=== PATIENT | female | born 1985 | race African-American/Black ===

== ENCOUNTER 2017-06-06 23:27 | Emergency (ER) | payer MEDICAID, OTHER ==
[2017-06-07 00:08] LABS: Bilirubin Negative (Negative); Blood, Urine Negative (Negative); Glucose, Urine (Dipstick) Negative (Negative); Ketone, Urine Negative (Negative); Nitrite Negative (Negative); Protein, Urine (Dipstick) Negative (Neg-Trace)
[2017-06-07 00:10] LABS: Bacteria/HPF 3+ HPF (None Seen); Hyaline Casts/LPF 4-6 HYALINE CAST LPF (0-3 Hyaline); RBC/HPF 0-3 HPF (0-3)
[2017-06-07 00:10] LABS: #Basophils 0.1 thou/uL (0.0-0.2); #Eosinphils 0.1 thou/uL (0.0-0.7); #Lymphocytes 2.5 thou/uL (1.20-3.40); #Monocytes 0.5 thou/uL (0.11-0.59); #Neutrophils 3.7 thou/uL (1.40-6.50); %Basophils 1.1 % (0.0-1.0); %Eosinophils 1.2 % (0.0-10.0); %Lymphocytes 36.1 % (21.0-51.0); %Monocytes 7.7 % (0.0-10.0); Hematocrit 44.4 % (36.0-47.0); Mean Platelet Volume 8.3 fL (7.4-10.4); Red Blood Cell (RBC) Count 4.68 mill/uL (4.20-5.40); White Blood Cell (WBC) Count 6.8 thou/uL (4.8-10.8)
[2017-06-07 00:30] LABS: ALT (SGPT) 16 U/L (8-55); AST (SGOT) 19 U/L (5-34); Alkaline Phosphatase 60 U/L (40-150); Anion Gap 16 mmol/L (10-20); BUN (Urea Nitrogen) 13 mg/dL (7.0-18.7); Bilirubin, Total 0.2 mg/dL (0.2-1.2); Calc. Creatinine Clearance 0 mL/min (70-130); Calcium 9.8 mg/dL (7.8-10.44); Carbon Dioxide 23 mmol/L (22-29); Chloride 104 mmol/L (98-107); Estimated GFR-MDRD Greater than 90; Globulin 3.2 g/dL (2.4-3.5); Lipase 21 U/L (8-78); Protein, Total 7.3 g/dL (6.0-8.3)
[2017-06-07] MEDS ORDERED: Ondansetron ODT 4 MG TAB ONE (02:45)
[2017-06-07] MEDS ORDERED: Cephalexin 250 MG CAP ONE (02:45)
[2017-06-07] MEDS ORDERED: Ondansetron HCl/PF 4 MG/2 ML Vial ONE (02:45)
--- NOTE | 2017-06-07 07:59 | ULT ---
PRELIMINARY REPORT/[facility]/EMERGENCY AFTER HOURS PROCEDURE: EXAM: US Abdomen Limited, Right Upper Quadrant CLINICAL HISTORY: 32 years old, female; Pain and signs and symptoms; Nausea and vomiting; Abdominal pain; Epigastric; Patient HX: Epigastric pain x 1 wk, pain worse after eating TECHNIQUE: Real-time ultrasound of the right upper quadrant with image documentation. COMPARISON: No relevant prior studies available. FINDINGS: Liver: The liver demonstrates a normal echotexture. Hepatopetal flow is demonstrated in the main por maninder vein. Gallbladder: The gallbladder is contracted. No gallstones. Negative Bo's sign was reported by [facility] pastry supervisor. Common bile duct: The extrahepatic bile duct diameter is 2 mm. No stones. No dilation. Pancreas: The visible portion of the pancreas is unremarkable. The pancreas is partially obscured by bowel gas. Right kidney: The right kidney measures 9.4 x 4.4 x 4.0 cm. No stones. No hydronephrosis. IMPRESSION: No abnormality identified. Thank you for allowing us to participate in the care of your patient. Dictated and Authenticated by: Demetrio Christianson MD 06/07/2017 3:18 AM Central Time ([place] \T\ Jg) FINAL REPORT RIGHT UPPER QUADRANT ULTRASOUND: I agree with the preliminary report given by Dr. Demetrio Christianson of [facility]. POS: [facility]
== END 2017-06-07 03:53 | disposition home or self-care (01) ==
LOC: ERS 23:27
DX: N12 Tubulo-interstitial nephritis, not specified as acute or chronic (principal); F41.9 Anxiety disorder, unspecified; F17.210 Nicotine dependence, cigarettes, uncomplicated; J45.909 Unspecified asthma, uncomplicated
CPT/HCPCS: 36415; 76705; 80053; 81003; 81015; 81025; 83690; 85025; 87086; 99406; J2405; Q0162

== ENCOUNTER 2017-07-05 15:20 | Emergency (ER) | payer MEDICAID | END 2017-07-05 16:55 | disposition home or self-care (01) | LOC: ERS 15:20 | DX: J06.9 Acute upper respiratory infection, unspecified (principal); J45.909 Unspecified asthma, uncomplicated; F41.9 Anxiety disorder, unspecified; F17.210 Nicotine dependence, cigarettes, uncomplicated | CPT/HCPCS: 99406 ==

== ENCOUNTER 2018-02-17 10:09 | Emergency (ER) | payer MEDICAID, OTHER ==
[2018-02-17] MEDS ORDERED: Ondansetron ODT 4 MG TAB ONE (10:34)
== END 2018-02-17 11:34 | disposition home or self-care (01) ==
LOC: ERS 10:09
DX: R11.0 Nausea (principal); F17.210 Nicotine dependence, cigarettes, uncomplicated; J45.909 Unspecified asthma, uncomplicated
CPT/HCPCS: 99283; Q0162

== ENCOUNTER 2019-05-02 08:50 | Emergency (ER) | payer OTHER | END 2019-05-02 12:11 | disposition home or self-care (01) | LOC: ERS 08:50 | DX: F41.9 Anxiety disorder, unspecified (principal); F17.210 Nicotine dependence, cigarettes, uncomplicated; Z79.899 Other long term (current) drug therapy | CPT/HCPCS: 99281 ==

== ENCOUNTER 2020-06-17 17:20 | Observation (INO) | payer OTHER ==
[2020-06-17 17:54] VITALS: BMI 26.5
[2020-06-17] MEDS ORDERED: hydrALAZINE 20 MG/ML VIAL SLOW IVP PRN (17:57)
[2020-06-17] MEDS ORDERED: Butorphanol Tartrate 1 MG/ML VIAL SLOW IVP PRN (17:57)
[2020-06-17] MEDS ORDERED: Zolpidem Tartrate 5 MG TAB PO PRN (18:01)
[2020-06-17] MEDS ORDERED: Acetaminophen 500 MG TAB PO PRN (18:02)
[2020-06-17] MEDS ORDERED: Metoclopramide HCl 10 MG/2 ML VIAL IVP SCH (18:15)
[2020-06-17] MEDS ORDERED: Mineral Oil ENEMA PR SCH (18:15)
[2020-06-17] MEDS ORDERED: Fleet Enema 133 ML BOT PR SCH (18:15)
[2020-06-17] MEDS ORDERED: Sodium Chloride 0.9% 1,000 ML IV SCH (18:15)
[2020-06-17 18:39] LABS: Hemoglobin 11.8 g/dL (12.0-16.0); Mean Corpuscular Hemoglobin 32.1 pg (27.0-31.0); Mean Corpuscular Volume 94.4 fL (78.0-98.0); Mean Platelet Volume 8.7 fL (7.4-10.4); Platelet Count 193 thou/uL (130-400); Red Blood Cell (RBC) Count 3.69 mill/uL (4.20-5.40); White Blood Cell (WBC) Count 8.6 thou/uL (4.8-10.8)
[2020-06-17] MEDS: Lactated Ringer's 1,000 ML IV SCH (18:53)
[2020-06-17] MEDS: diphenhydrAMINE 50 MG/ML VIAL IVP SCH (18:54)
[2020-06-17 19:21] LABS: HBSAg Index 0.22 S/CO (0-0.99); Hep B Surf Ag Non-Reactive S/CO (NonReactive); Syphilis Antibody Nonreactive (Nonreactive); Syphilis Antibody Index 0.02 S/CO (<1.00 Non-Reactive)
--- NOTE | 2020-06-17 19:42 | ULT ---
Pelvic ultrasound: 06/17/2020 HISTORY: female undergoing evaluation for dating TECHNIQUE: Multiplanar grayscale sonographic imaging of the pelvis is obtained with transabdominal im aging. Ovaries are assessed with Doppler interrogation including color flow and spectral analysis FINDINGS: The uterus measures 11.5 x 5.8 x 6.7 cm. The left ovary measures 3.0 x 4.3 x 2.5 cm and the right ovary measures 2.2 x 4.3 x 2.5 cm. The ovaries demonstrate normal blood flow without evidence for mass. There is an intrauterine gestational sac demonstrating a pole with a heart r ate of 168 bpm. A yolk sac is noted. No subchorionic hemorrhage is seen. No free fluid seen in the pelvis. biometry: [place]-rump length is 1.7 cm, correlating with an 8 week 1 day gestation. Gestational sac diameter is 2.9 cm correlating with an 8 week 0 day gestation. Average age based on u ltrasound is 8 weeks 1 day with estimated date of delivery on 01/26/2021 IMPRESSION: Intrauterine gestation as detailed above. No abnormalities are seen.
[2020-06-18] MEDS: diphenhydrAMINE 50 MG/ML VIAL IVP SCH ×3 (00:23→11:51)
[2020-06-18] MEDS: Lactated Ringer's 1,000 ML IV SCH ×2 (03:34→11:54)
[2020-06-18] MEDS ORDERED: Milk Of Magnesia 30 ML UDCUP PO PRN (08:08)
--- NOTE | 2020-06-18 08:33 | HP ---
CHIEF COMPLAINT: Nausea and vomiting refractory to outpatient management. HISTORY OF PRESENT ILLNESS: The patient is a 35-year-old G4, P2 female with an intrauterine recently diagnosed yesterday, who re-presented to the emergency room today with persistent nausea and vomiting, unrelenting to oral medication. During her evaluation in the emergency room, the patient was noted to have normal electrolytes, but showing clinically significant dehydration. With this being her 2nd presentation, [employer] hospitalist was called and admission recommended. Upon arrival, the patient did confirm that she has been unable to keep any liquids or solids down for a good week or two. She believes that she has lost about 10 pounds. She reports vomiting throughout the day and reports a history of diarrhea up until about 1 to 2 weeks ago, which time she stopped having bowel movements. The patient reports some dizziness and lightheadedness with activity and movement. The patient denies fever, cough, headache, chest pain, shortness of breath, any new rashes, hip problems, knee problems, muscle weakness. She denies vaginal bleeding, leakage of fluid, urinary urgency or frequency. PAST MEDICAL HISTORY: Anxiety. PAST SURGICAL HISTORY: Appendectomy. SOCIAL HISTORY: Denies drug, alcohol, or tobacco use. ALLERGIES: NO KNOWN DRUG ALLERGIES. MEDICATIONS: At home, Reglan. REVIEW OF SYSTEMS: Per history of present illness. PHYSICAL EXAMINATION: VITAL SIGNS: On the floor, blood pressure 110/67, temperature 98.5, pulse of 67, respiratory rate of 20, saturating 100% on room air. GENERAL: She appears to be in no acute distress. She is alert, oriented, cooperative, pleasant to interact with. HEAD: Normocephalic, atraumatic. LUNGS: Clear to auscultation bilaterally. HEART: Regular rate and rhythm. ABDOMEN: Soft, nontender. EXTREMITIES: Nontender, nonedematous. : Deferred. In the emergency room prior to transfer, the patient had received 2 L of normal saline, 12.5 mg of promethazine, 4 of Zofran. Dating ultrasound performed shows an intrauterine measuring 8 weeks and 1 day gestation with an estimated date of delivery on 01/26/2021. ASSESSMENT AND PLAN: The patient is a 35-year-old female with an intrauterine , newly diagnosed, 8 weeks and a day with nausea and vomiting refractory to outpatient management. The patient has no electrolyte abnormalities at this time, but showed signs of significant dehydration. We will keep the patient n.p.o. overnight. Place her on scheduled Reglan and Benadryl and IV hydration, and we will re-evaluate. If by morning, she has an appetite, we will attempt to feed her, and if tolerated, switch to oral antiemetics. Possible discharge home tomorrow. Job ID: [id number]
--- NOTE | 2020-06-18 08:37 | PRG ---
DATE OF SERVICE: 06/18/2020 SUBJECTIVE: The patient is a 35-year-old female, admitted to observation for nausea and vomiting refractory to outpatient management in the setting of . The patient has been on scheduled Reglan and Benadryl since admission and has not had a single episode of vomiting since that time. The patient has been hydrated well over the course of her stay and has had an enema with good results. She reports this morning that she has an appetite and would like to attempt eating. OBJECTIVE: VITAL SIGNS: Most recent vital signs this morning, blood pressure is 93/54, temperature 98.3, pulse is 67, respiratory rate of 16, saturating 99% on room air. GENERAL: She appears to be in no acute distress. She is alert, oriented, cooperative, and pleasant to interact with. HEENT: Head is normocephalic, atraumatic. ASSESSMENT AND PLAN: The patient is a 35-year-old female with an intrauterine at 8 weeks and 2 days, here for nausea and vomiting. She is tolerating well the Reglan and Benadryl and has not had a single episode of vomiting since then. We will advance her diet to regular this morning. If tolerated well, we will switch her to oral medications scheduled and see how she does with lunch. The patient was requesting from the nurse an another enema this morning. We will attempt milk of magnesia since she has an appetite and has not had any vomiting. Job ID: [id number]
[2020-06-18] MEDS ORDERED: FLU VACC QS2020-21(6MOS UP)/PF 60 MCG/0.5 ML SYRINGE IM ONE (09:00)
[2020-06-18] MEDS ORDERED: Metoclopramide HCl 10 MG/2 ML VIAL IVP SCH (09:15)
[2020-06-18] MEDS ORDERED: diphenhydrAMINE 25 MG CAP PO PRN (14:45)
--- NOTE | 2020-06-18 14:47 | PDOC.EVN ---
Event Note - Event Note Event Note: Patient is tolerating po now. switching to Po reglan and benadryl.
[2020-06-18 15:49] VITALS: BP 104/57; TEMP 98.8
[2020-06-18] MEDS ORDERED: Metoclopramide HCl 10 MG TAB PO SCH (17:00)
--- NOTE | 2020-06-19 03:16 | DIS ---
DATE OF ADMISSION: 06/17/2020 DATE OF DISCHARGE: 06/18/2020 ADMITTING DIAGNOSES: 1. Intrauterine . 2. Persistent nausea and vomiting. DISCHARGE DIAGNOSES: 1. Resolution of her nausea and vomiting, on scheduled medications. 2. An intrauterine at 8 weeks and 2 days. HOSPITAL COURSE: The patient is a 35-year-old multiparous female with a newly diagnosed and persistent nausea and vomiting for several weeks. She was admitted to the hospital for significant dehydration and refractory condition to outpatient management. Over the course of her stay, the patient has done well with IV Reglan and Benadryl scheduled, converted over to p.o. medication this afternoon, and is tolerated breakfast and lunch. Complicating her stay, she had an IV infiltration in her left AC, for which she is being treated with hot compresses. PHYSICAL EXAMINATION: VITAL SIGNS: This afternoon, blood pressure is 104/57, temperature 98.8, pulse is 78, respiratory rate of 18, O2 sats at 100%. GENERAL: She appears to be in no acute distress. She does have some swelling in the left arm, but no erythema or pain at this time. PLAN: At this time is to continue her trial of p.o. with dinner tonight, and if she tolerates it well on her oral medications, then she will be discharged home this evening. Should she not tolerate p.o. and began vomiting again, her oncoming physician, Dr. Templeton can make further management plans. The patient will be discharged home. She does not have an OB provider, but I have verbally given her a list. She has [facility] in her system here, and I have referred her back to them for followup in 2 weeks as she saw Liudmila Chaudhry in the last week or two. The patient will be discharged home with Reglan 10 mg to be taken 30 minutes before meals scheduled and Benadryl 25 mg to be taken up to 4 times a day scheduled at least until followup with the next provider. Prescriptions have been sent. Job ID: [id number]
== END 2020-06-18 20:38 | disposition home or self-care (01) ==
LOC: 3SE 17:20
PROVIDERS: ADMIT Obstetrics & Gynecology; ATTEND Obstetrics & Gynecology
DX: O21.9 Vomiting of pregnancy, unspecified (principal); O99.283 Endocrine, nutritional and metabolic diseases complicating pregnancy, third trimester; E86.0 Dehydration; Z3A.08 8 weeks gestation of pregnancy; Z79.899 Other long term (current) drug therapy
CPT/HCPCS: 36415; 76856; 86780; 86850; 86900; 86901; 87340; 93976; 96374; 96375; 96376; G0378; J1200; J2765

== ENCOUNTER 2020-08-04 21:48 | Emergency (ER) | payer OTHER | END 2020-08-04 23:08 | disposition home or self-care (01) | LOC: ERS 21:48 | DX: O98.52 Other viral diseases complicating childbirth (principal); U07.1 COVID-19; O99.332 Smoking (tobacco) complicating pregnancy, second trimester; F17.210 Nicotine dependence, cigarettes, uncomplicated; Z3A.16 16 weeks gestation of pregnancy | CPT/HCPCS: 99283 ==

== ENCOUNTER 2020-09-04 11:12 | Outpatient (CLI) | payer OTHER | END 2020-09-04 11:13 | disposition home or self-care (01) | LOC: BICULT 11:12 | PROVIDERS: ATTEND Family Medicine | DX: Z34.81 Encounter for supervision of other normal pregnancy, first trimester (principal); Z3A.01 Less than 8 weeks gestation of pregnancy | CPT/HCPCS: 76805 ==

== ENCOUNTER 2021-07-24 13:00 | Emergency (ER) | payer OTHER ==
[2021-07-24] MEDS ORDERED: Metoclopramide HCl 10 MG/2 ML VIAL ONE (13:42)
[2021-07-24 14:37] LABS: #Eosinphils 0.1 thou/uL (0.0-0.7); #Lymphocytes 0.4 thou/uL (1.20-3.40); #Monocytes 0.7 thou/uL (0.11-0.59); #Neutrophils 8.5 thou/uL (1.40-6.50); %Basophils 0.1 % (0.0-1.0); %Eosinophils 0.5 % (0.0-10.0); %Monocytes 7.5 % (0.0-10.0); %Neutrophils 87.8 % (42.0-75.0); Hemoglobin 13.6 g/dL (12.0-16.0); Mean Corpuscular HGB CONC 34.1 g/dL (32.0-36.0); Mean Corpuscular Hemoglobin 32.5 pg (27.0-31.0); Mean Corpuscular Volume 95.2 fL (78.0-98.0); Mean Platelet Volume 8.5 fL (7.4-10.4); Platelet Count 192 thou/uL (130-400); Red Blood Cell (RBC) Count 4.18 mill/uL (4.20-5.40); White Blood Cell (WBC) Count 9.7 thou/uL (4.8-10.8)
[2021-07-24 14:51] LABS: BHCG - Serum POSITIVE (NEGATIVE); Pregs Control Background? CLEAR/WHITE (CLR/WHITE); Pregs Control Bar Appear? YES (CONTROL BAR)
[2021-07-24 14:59] LABS: ALT (SGPT) 15 U/L (8-55); AST (SGOT) 19 U/L (5-34); Albumin 3.6 g/dL (3.5-5.0); Alkaline Phosphatase 52 U/L (40-110); Anion Gap 11 mmol/L (10-20); BUN (Urea Nitrogen) 8 mg/dL (7.0-18.7); Bilirubin, Total 0.2 mg/dL (0.2-1.2); Calc. Creatinine Clearance 0 mL/min (70-130); Calcium 9.1 mg/dL (7.8-10.44); Carbon Dioxide 22 mmol/L (22-29); Chloride 107 mmol/L (98-107); Glucose 98 mg/dL (70-105); Lipase 11 U/L (8-78); Potassium 3.5 mmol/L (3.5-5.1); Protein, Total 6.6 g/dL (6.0-8.3); Sodium 136 mmol/L (136-145)
[2021-07-24 16:07] LABS: Bilirubin Negative (Negative); Blood, Urine Negative (Negative); Clarity Clear (Clear); Glucose, Urine (Dipstick) Normal (Negative); Ketone, Urine 10 mg/dL (Negative); Leukocyte Negative Leu/uL (Negative); Nitrite Negative (Negative); Protein, Urine (Dipstick) 10 mg/dL (Neg-Trace); Specific Gravity, Urine 1.021 (1.002-1.036); Urobilinogen Normal mg/dL (Less than 2)
[2021-07-24] MEDS ORDERED: Ondansetron PF 4 MG/2 ML Vial ONE (16:41)
== END 2021-07-24 16:47 | disposition home or self-care (01) ==
LOC: ERS 13:00
DX: O99.891 Other specified diseases and conditions complicating pregnancy (principal); R11.2 Nausea with vomiting, unspecified; O99.330 Smoking (tobacco) complicating pregnancy, unspecified trimester
CPT/HCPCS: 36415; 80053; 81003; 83690; 84702; 84703; 85025; 96374; 96375; J2405; J2765

== ENCOUNTER 2021-12-11 15:24 | Emergency (ER) | payer OTHER ==
[2021-12-11] MEDS ORDERED: Ondansetron ODT 8 MG TAB ONE (16:25)
[2021-12-11] MEDS ORDERED: Promethazine HCl 25 MG in Sodium Chloride 0.9% 50 ML IVPB SCH (18:00)
[2021-12-11 18:25] LABS: #Eosinphils 0.1 thou/uL (0.0-0.7); #Lymphocytes 0.7 thou/uL (1.20-3.40); #Monocytes 0.6 thou/uL (0.11-0.59); #Neutrophils 8.9 thou/uL (1.40-6.50); %Basophils 0.2 % (0.0-1.0); %Eosinophils 0.5 % (0.0-10.0); %Lymphocytes 6.7 % (21.0-51.0); %Monocytes 5.6 % (0.0-10.0); %Neutrophils 86.9 % (42.0-75.0); Hemoglobin 12.2 g/dL (12.0-16.0); Mean Corpuscular HGB CONC 33.6 g/dL (32.0-36.0); Mean Corpuscular Hemoglobin 32.6 pg (27.0-31.0); Mean Corpuscular Volume 96.8 fL (78.0-98.0); Mean Platelet Volume 8.5 fL (7.4-10.4); Platelet Count 204 thou/uL (130-400); RBC Distribution Width 11.8 % (11.5-14.5); Red Blood Cell (RBC) Count 3.75 mill/uL (4.20-5.40); White Blood Cell (WBC) Count 10.2 thou/uL (4.8-10.8)
[2021-12-11 18:45] LABS: ALT (SGPT) 13 U/L (8-55); AST (SGOT) 24 U/L (5-34); Albumin 3.1 g/dL (3.5-5.0); Alkaline Phosphatase 55 U/L (40-110); Anion Gap 16 mmol/L (10-20); BUN (Urea Nitrogen) 7 mg/dL (7.0-18.7); Bilirubin, Total 0.3 mg/dL (0.2-1.2); Calc. Creatinine Clearance 0 mL/min (70-130); Calcium 8.5 mg/dL (7.8-10.44); Carbon Dioxide 18 mmol/L (22-29); Chloride 107 mmol/L (98-107); Globulin 3.3 g/dL (2.4-3.5); Glucose 82 mg/dL (70-105); Potassium 3.7 mmol/L (3.5-5.1); Protein, Total 6.4 g/dL (6.0-8.3); Sodium 137 mmol/L (136-145)
[2021-12-11] MEDS ORDERED: Metoclopramide HCl 10 MG/2 ML VIAL ONE (20:46)
== END 2021-12-11 21:47 | disposition short-term general hospital (02) ==
LOC: ERS 15:24
DX: O21.0 Mild hyperemesis gravidarum (principal); O99.332 Smoking (tobacco) complicating pregnancy, second trimester; F17.210 Nicotine dependence, cigarettes, uncomplicated; Z79.82 Long term (current) use of aspirin; Z3A.24 24 weeks gestation of pregnancy
CPT/HCPCS: 36415; 71045; 80053; 85025; 93005; 96365; 96375; J2550; J2765; Q0162

== ENCOUNTER 2022-08-03 12:15 | Emergency (ER) | payer OTHER | END 2022-08-03 15:13 | disposition left against medical advice (07) | LOC: ERS 12:15 | DX: Z53.21 Procedure and treatment not carried out due to patient leaving prior to being seen by health care provider (principal) ==

== ENCOUNTER 2023-06-14 09:52 | Emergency (ER) | payer OTHER ==
[2023-06-14] MEDS ORDERED: Ondansetron PF 4 MG/2 ML Vial ONE (10:37)
[2023-06-14] MEDS ORDERED: Ketorolac Tromethamine 30 MG/ML VIAL ONE (10:37)
[2023-06-14] MEDS ORDERED: Acetaminophen 500 MG TAB ONE ×2 (10:37→10:47)
[2023-06-14 11:00] LABS: #Monocytes 0.7 thou/uL (0.11-0.59); #Neutrophils 4.9 thou/uL (1.40-6.50); %Basophils 0.5 % (0.0-1.0); %Monocytes 11.3 % (0.0-10.0); %Neutrophils 81.9 % (42.0-75.0); Hematocrit 37.4 % (36.0-47.0); Hemoglobin 12.8 g/dL (12.0-16.0); Mean Corpuscular HGB CONC 34.2 g/dL (32.0-36.0); Mean Corpuscular Hemoglobin 30.9 pg (27.0-31.0); Mean Corpuscular Volume 90.3 fl (78.0-98.0); Mean Platelet Volume 10.9 fL (7.4-10.4); Platelet Count 208 10x3/uL (130-400); RBC Distribution Width 12.6 % (11.5-14.5); Red Blood Cell (RBC) Count 4.14 mill/uL (4.20-5.40)
[2023-06-14 11:24] LABS: ALT (SGPT) 16 U/L (8-55); AST (SGOT) 23 U/L (5-34); Albumin 4.1 g/dL (3.5-5.0); Alkaline Phosphatase 59 U/L (40-110); Anion Gap 14 mmol/L (10-20); BUN (Urea Nitrogen) 12 mg/dL (7.0-18.7); Bilirubin, Total 0.3 mg/dL (0.2-1.2); Calc. Creatinine Clearance 0 mL/min (70-130); Calcium 8.6 mg/dL (7.8-10.44); Carbon Dioxide 22 mmol/L (22-29); Chloride 103 mmol/L (98-107); Estimated GFR 101; Glucose 104 mg/dL (70-105); Lipase 7 U/L (8-78); Potassium 3.1 mmol/L (3.5-5.1); Protein, Total 7.1 g/dL (6.0-8.3); Sodium 136 mmol/L (136-145)
[2023-06-14 11:41] LABS: SARS-CoV-2 NAA Rapid Test Not Detected (NotDetected)
== END 2023-06-14 12:15 | disposition home or self-care (01) ==
LOC: ERS 09:52
DX: J10.1 Influenza due to other identified influenza virus with other respiratory manifestations (principal); Z20.822 Contact with and (suspected) exposure to COVID-19
CPT/HCPCS: 80053; 83690; 85025; 87081; 87430; 96361; 96374; 96375; J1885; J2405